=== PATIENT | male | born 1990 | race Caucasian/White ===

== ENCOUNTER 2021-12-19 06:13 | Emergency (ER) | payer OTHER ==
[~2021-12-19] VITALS: Ht 190.5 cm; Wt 102.2 kg
[2021-12-19] MEDS ORDERED: KETOROLAC 60 MG/2 ML VIAL. IM ONE (06:45)
[2021-12-19] MEDS ORDERED: KETOROLAC 30 MG/ML VIAL. ONE (06:54)
[2021-12-19] MEDS ORDERED: KETOROLAC 30 MG/ML VIAL. IM ONE (07:00)
--- NOTE | 2021-12-19 07:30 | RAD ---
EXAMINATION: Lumbar spine radiograph. VIEWS: 3 COMPARISON: None INDICATION:31 years, Male, injury, pain. FINDINGS: The vertebral bodies are normal in height and alignment. No acute fracture or subluxation. Straighten ing the spine, may reflect muscle spasm. No significant degenerative disease. Paravertebral soft tiss ue is unremarkable. IMPRESSION: No acute osseous process. Electronically signed by: Waldo Bergeron MD (12/19/2021 7:28 AM) [facility]
[2021-12-19] MEDS ORDERED: HYDR-2759 PO (07:50)
[2021-12-19] MEDS ORDERED: IBUP800T19 PO (07:50)
[2021-12-19] MEDS ORDERED: CYCL5TAB PO (07:50)
--- NOTE | 2021-12-19 07:50 | PHYS DOC ---
Past History Additional Past Medical Histor: lumbar herniation Past Surgical History: Other Additional Past Surgical Histo: radiofrequency ablasions on back Alcohol Use: Occasionally General Adult EDM: Chief Complaint: BACK PAIN OR INJURY HPI: HPI: Patient is a 31-year-old male presents with low back pain. Patient states he dropped a set of keys earlier and when bending down to pick them up he felt a sudden pain in his lower back. This is in the lumbar area, does not radiate down into the lower extremities and he does not have any associated numbness or weakness. No bladder or bowel incontinence. He has had problems with herniated disks in the past. No fever that he is aware of, no trauma otherwise. Review of Systems: Review of Systems: Constitutional: Denies fever Eyes: Denies change in visual acuity or eye pain HENT: Denies sore throat Respiratory: Denies shortness of breath Cardiovascular: Denies chest pain GI: Denies abd pain : Denies dysuria Musculoskeletal: Denies extremity injury Integument: Denies rash or skin lesions Neurologic: Denies headache, focal weakness or sensory changes All other systems were reviewed and found to be within normal limits, except as documented in this note. Current Medications: Current Meds: Current Medications Medications (Trade) Dose Ordered Sig/Zainab Start Time Stop Time Status Last Admin Dose Admin Ketorolac Tromethamine (Toradol 30mg Vial) 30 mg 1X ONCE 12/19/21 07:00 12/19/21 07:13 DC 12/19/21 07:08 30 MG Ketorolac Tromethamine (Toradol Im) 30 mg 1X ONCE 12/19/21 06:45 12/19/21 07:00 DC Allergies: Allergies: Allergies Coded Allergies Type Severity Reaction Last Updated Verified Penicillins Allergy Unknown 12/19/21 Yes Physical Exam: PE: Constitutional: Well developed, well nourished, no acute distress, non-toxic appearance. HENT: Normocephalic, atraumatic, bilateral external ears normal, mucosa moist, nose normal. Eyes: EOMI, conjunctiva normal, no discharge. Neck: Normal range of motion, supple, no stridor, no meningeal signs. Cardiovascular: Regular rate and rhythm Lungs & Thorax: Bilateral breath sounds clear to auscultation Abdomen: Soft, no tenderness or obvious masses Skin: Warm, dry, no erythema, no rash. Extremities: No tenderness, no cyanosis, no clubbing, ROM intact, no edema. Musculoskeletal: Patient has quite a bit of discomfort when trying to go from a supine to sitting position Neurologic: Alert and oriented, normal motor function, normal sensory function, no focal deficits noted. Psychologic: Affect normal, judgement normal, mood normal. Current Patient Data: Vital Signs: Vital Signs Date Time Temp Pulse Resp B/P (MAP) Pulse Ox O2 Delivery O2 Flow Rate FiO2 12/19/21 07:10 94 18 136/80 (98) 98 Room Air 12/19/21 06:15 98.7 EKG: EKG: [] Radiology/Procedures: Radiology/Procedures: [] Impressions: PATIENT: ROLO ESPARZA ACCOUNT: [id number] : 1990 LOCATION: ER AGE: 31 SEX: M EXAM STATUS: REG ER ORD. PHYSICIAN: JOHNNY CHANEY MD REASON: pain, INJURED BENDING OVER PROCEDURE: LUMBAR SPINE 2-3V EXAMINATION: Lumbar spine radiograph. VIEWS: 3 COMPARISON: None INDICATION:31 years, Male, injury, pain. FINDINGS: The vertebral bodies are normal in height and alignment. No acute fracture or subluxation. Straightening the spine, may reflect muscle spasm. No significant degenerative disease. Paravertebral soft tissue is unremarkable. IMPRESSION: No acute osseous process. Electronically signed by: Chandan Bergeron MD (12/19/2021 7:28 AM) [facility] DICTATED AND SIGNED BY: CHANDAN BERGERON MD DATE: 12/19/21726 CC: PCP,UNKNOWN; JOHNNY CHANEY MD ~ Heart Score: C/O Chest Pain: No Risk Factors: Risk Factors: DM, Current or recent (<one month) smoker, HTN, HLP, family history of CAD, obesity. Risk Scores: Score 0 - 3: 2.5% MACE over next 6 weeks - Discharge Home Score 4 - 6: 20.3% MACE over next 6 weeks - Admit for Clinical Observation Score 7 - 10: 72.7% MACE over next 6 weeks - Early Invasive Strategies Course & Med Decision Making: Course & Med Decision Making Pertinent Labs and Imaging studies reviewed. (See chart for details) [] Is a 31-year-old male with low back pain. Symptoms are consistent with muscular strain or potential disc herniation. He was given 30 of Toradol IM with minimal relief. Will discharge with prescription for Tylenol 3 and Flexeril and Motrin, have him follow-up with his primary care physician, he is stable for discharge at this time. Adan Disclaimer: Dragpatricia Disclaimer: This electronic medical record was generated, in whole or in part, using a voice recognition dictation system. Departure Departure: Impression: Primary Impression: Low back pain Disposition: HOME / SELF CARE / HOMELESS Condition: STABLE Referrals: PCP,UNKNOWN (PCP) Patient Instructions: Back Pain, Adult Scripts Hydrocodone/Acetaminophen (Hydrocodone-Acetamin 5-325 mg) 1 Each Tablet 1 EACH PO Q6HRS for pain, #10 TAB Prov: JOHNNY CHANEY MD 12/19/21 Ibuprofen (IBUPROFEN) 800 Mg Tablet 1 TAB PO TID for pain, #30 TAB Prov: JOHNNY CHANEY MD 12/19/21 Cyclobenzaprine Hcl (CYCLOBENZAPRINE HCL) 5 Mg Tablet 1 TAB PO TID for pain, #30 TAB Prov: JOHNNY CHANEY MD 12/19/21 JOHNNY CHANEY MD Dec 19, 2021 07:50
[2021-12-19 07:57] VITALS: BP 128/77
== END 2021-12-19 07:58 | disposition home or self-care (01) ==
LOC: ER 06:13
DX: M54.59 Other low back pain (principal); Z88.0 Allergy status to penicillin
CPT/HCPCS: 72100; 96372; 99283; J1885